=== PATIENT | female | born 1965 | race Caucasian/White ===

== ENCOUNTER → 2018-07-21 11:04 | Outpatient (CLI) | payer SELFPAY ==
[2018-07-21 12:53] LABS: Anion Gap 10 (5-15); BUN 11 mg/dL (7-18); BUN/Creat Ratio 14.8 RATIO (10-20); Calcium,Total 8.7 mg/dL (8.5-10.1); Chloride 105 mmol/L (98-107); Cholesterol 215 mg/dL (200); Creatinine, Serum 0.74 mg/dL (0.55-1.02); EST Glomerular Filtration Rate 86 mL/min (>60); Est Glom Filt Rate - Afr Amer 104 mL/min (>60); Glucose 113 mg/dL (74-106); High Density Lipoprotein 73 mg/dL; Potassium 3.9 mmol/L (3.5-5.1); Sodium Level 137 mmol/L (136-145); Triglycerides 78 mg/dL; Very Low Density Lipoprotein 16 mg/dL (5-40)
== END ==
PROVIDERS: Visit Provider Family Medicine
DX: I10 Essential (primary) hypertension (principal)
CPT/HCPCS: 36415; 80048; 80061

== ENCOUNTER 2022-08-08 12:38 | Emergency (ER) | payer SELFPAY ==
[2022-08-08 12:40] VITALS: BP 158/108; PULSE 75; RESP 16; TEMP 36; O2SAT 97
--- NOTE | 2022-08-08 12:59 | CT_ITS ---
STUDY: CT ABDOMEN AND PELVIS WITH CONTRAST REASON FOR EXAM: Female, 57 years old. Right lower quadrant pain. Prior hernia repair. RADIATION DOSAGE (If Supplied By Facility): CTDIvol = ( 17.37 ) mGy, DLP = ( 534.86 ) mGycm TECHNIQUE: Transaxial images were obtained from the dome of the diaphragm to the symphysis pubis without oral contrast. IV 100mL Isovue-300 was administered. Sagittal and coronal images were reconstructed. Individualized dose optimization techniques were used for this CT. COMPARISON: None. FINDINGS: The visualized lung bases are unremarkable. The visualized portions of the heart are within normal limits. There is a 1.5 cm x 1 some mucous cyst in the superior medial aspect of the right lobe of the liver. A cyst is also seen in the anterior lateral portion of the midportion of the right lobe measuring 1.1 cm x 1 cm. Tiny cysts are also seen in the left lobe and inferior aspect of the right lobe of the liver. The patient is status post cholecystectomy. Normal spleen. Normal pancreas. Normal bilateral adrenal glands. Mild degree of bilateral hydronephrosis. Normal visualized stomach. Normal small intestine. There is diverticulosis, with thickening of the colon wall, and pericolonic inflammation changes consistent with acute diverticulitis. The appendix is visualized and appears normal. There is scattered atherosclerotic calcification of the abdominal aorta, without a demonstrated aneurysm. Normal inferior vena cava. Normal retroperitoneum. Normal urinary bladder. There is absence of the uterus consistent with a prior hysterectomy. Prominent venous channels seen in the pelvis. Prominence of the left gonadal vein. Pelvic congestion syndrome should be There is a small umbilical hernia containing fat. Normal osseous structures. CT/Abdomen/Pelvis W IV Cont ONLY IMPRESSION: Small hepatic cysts. Dilatation of the left gonadal vein with the increase venous structures in the pelvis. Pelvic congestion syndrome should BE ruled out. Sigmoid diverticulosis with thickening of the wall of the sigmoid colon with mild increased markings in the surrounding peritoneal fat. Early acute diverticulitis should be ruled out. Electronically Signed: Abdullahi Hou MD at 13:38 EDT ,
--- NOTE | 2022-08-08 13:00 | EDS_ITS ---
HPI History of Present Illness Chief Complaint: Abd Pain Informant: patient Narrative Narrative: 57-year-old male presenting to the emergency department with a chief complaint of abdominal pain. Patient states that since 2010 she has had problems with hernias in her abdomen. She states that she has no current primary care doctor and she has not made appointment with her surgeon since 2010. She states that she has been taking a lot of ibuprofen especially over the past several months and this is caused her blood pressure to be elevated so she made an online appointment and they represcribed her propranolol which she had been on in the past for migraine prevention. She states that it has not done anything for her headaches. She has not called for new primary care doctor. She states that her hernias are hurting really bad now. No fevers vomiting or diarrhea. [facility] Medical History (Updated 08/08/22 @ 13:[address] Sharif Lugo DO) Hypertension Allergy/AdvReac Type Severity Reaction Status Date / Time codeine AdvReac Upset Verified 08/08/22 12:39 Stomach Surgical History (Updated 08/08/22 @ 13:[address] Sharif Lugo DO) H/O umbilical hernia repair History of hysterectomy Social History (Updated 08/08/22 @ 13:[address] Sharif Lugo DO) Smoking Status: Current every day smoker substance use type: does not use ROS ROS ED Constitutional Constitutional ED: Denies chills or weight loss Eyes Eyes: Denies change in vision or diplopia ENT ENT ED: Denies ear pain, rhinorrhea or sore throat Cardiovascular Cardiovascular: Denies chest pain, orthopnea, palpitations or racing heartbeat Respiratory/Chest Respiratory/Chest: Denies cough, dyspnea or orthopnea Gastrointestinal Gastrointestinal: Reports abdominal pain; Denies constipation, diarrhea, nausea or vomiting Genitourinary Genitourinary ED: Denies dysuria, hematuria or urinary frequency Musculoskeletal Musculoskeletal: Denies arthralgias or myalgias Integumentary Denies abscess or rash Neurologic Neurologic: Denies headache(s) or weakness Psychiatric Psychiatric: Denies anxiety, depression, suicidal ideation or suicidal thoughts Endocrine Endocrinology: Denies polydipsia, polyphagia or polyuria Allergic/Immunologic Allergic/Immunologic ED: Denies mouth swelling, tongue swelling or urticaria EXAM Physical Exam Const Vital Signs: 08/08/22 12:40 Temperature 96.8 F L Temperature Source Temporal Pulse Rate 75 Respiratory Rate 16 Blood Pressure 158/108 H Blood Pressure Mean 124 Pulse Ox 97 Oxygen Delivery Method Room Air Positive well nourished and well developed General Appearance ED: well developed HEENT Reports normocephalic, head/scalp atraumatic and moist mucous membranes Eyes PERRL and EOMs intact bilaterally Neck no lymphadenopathy, supple and no JVD Resp normal respiratory effort and clear to auscultation bilaterally Cardio regular rate, regular rhythm and no murmurs GI GI Narrative: The patient complains of generalized tenderness to palpation throughout the abdomen. However it is soft. I do not appreciate any obvious hernias at this time. Palpation: soft and tender; Negative for guarding or rebound tenderness present Back/Spine no CVA tenderness and normal ROM Extremity normal to inspection General Extremety ED: Negative for edema General Extremity: Negative for edema Neuro oriented x3 and CN's II-XII intact bilaterally Sensorium / Orientation: alert Motor Exam: strength 5/5 throughout Psych mental status grossly normal Mood & Affect: Negative for depressed or tearful Skin no rashes or lesions noted and no wounds Discharge Plan Triage Chief Complaint: Abd Pain ED Provider: Sharif Lugo
[2022-08-08 13:20] LABS: Absolute Lymphocyte Count 2.31 X10^3/uL (0.83-4.51); Absolute Neutrophil Count 5.1 X10^3/uL (2.0-7.7); Basophil# 0.01 X10^3/uL; Basophil% 0.1 % (0-1); Hematocrit 46.9 % (37-47); Hemoglobin 16.1 g/dL (12.0-15.0); Lymphocyte # 2.31 X10^3/ul (0.83-4.51); Lymphocyte % 28.9 % (19-41); Mean Corp Hgb Conc 34.3 g/dL (32-36); Mean Corpuscular Hgb 30.6 pg (27.0-32.0); Mean Corpuscular Volume 89.2 fL (81-99); Mean Platelet Vol. 9.5 fl (6.2-12.0); Monocyte# 0.54 X10^3/uL; Monocyte% 6.8 % (0-10); NRBC Flagged by Analyzer 0 % (0-5); Neutrophil # 5.11 X10^3/uL (2.7-7.7); Neutrophil % 63.8 % (47-70); Platelet Count 196 K/mm3 (150-450); RBC Distribution Width CV 12.2 % (11.6-14.6); RBC Distribution Width SD 40.3 fl (35.1-43.9); Red Blood Count 5.26 M/mm3 (4.2-5.4)
[2022-08-08 13:33] LABS: ALB/GLOB Ratio 1.1 RATIO (0.9-2.4); AST(SGOT) 29 U/L (15-37); Alanine Aminotransfer ALT/SGPT 35 U/L (13-56); Albumin, Serum 3.9 g/dL (3.2-5.0); Alkaline Phosphatase 90 U/L (45-117); Anion Gap 6 (5-15); BUN 16 mg/dL (7-18); BUN/Creat Ratio 21.2 RATIO (10-20); Calcium,Total 9.5 mg/dL (8.5-10.1); Chloride 106 mmol/L (98-107); Creatinine, Serum 0.75 mg/dL (0.55-1.02); EST Glomerular Filtration Rate 84 mL/min (>60); Est Glom Filt Rate - Afr Amer 101 mL/min (>60); Globulin 3.7 g/dL (2.2-4.2); Glucose 111 mg/dL (74-106); Lipase 131 U/L (73-393); Potassium 4.1 mmol/L (3.5-5.1); Protein, Total 7.6 g/dL (6.4-8.2); Sodium Level 140 mmol/L (136-145)
== END 2022-08-08 13:57 | disposition home or self-care (01) ==
PROVIDERS: Emergency Provider Emergency Medicine; Visit Provider Emergency Medicine
DX: K57.32 Diverticulitis of large intestine without perforation or abscess without bleeding (principal); I10 Essential (primary) hypertension; R51.9 Headache, unspecified; F17.200 Nicotine dependence, unspecified, uncomplicated; Z79.1 Long term (current) use of non-steroidal anti-inflammatories (NSAID)
CPT/HCPCS: 74177; 80053; 83690; 85025; 99283; Q9967; A4216

== ENCOUNTER 2022-08-26 11:59 | Emergency (ER) | payer SELFPAY ==
[2022-08-26 12:01] VITALS: BP 154/89; PULSE 90; RESP 18; TEMP 36.6; O2SAT 99; BMI 25.7
--- NOTE | 2022-08-26 12:13 | EDS_ITS ---
HPI <JUAN A Lara - Last Filed: 08/26/22 14:26> History of Present Illness Chief Complaint: Abd Pain Narrative Narrative: 57-year-old female presents with abdominal pain. The pain first started around August 08 and she was seen here and diagnosed with diverticulitis and completed 10 days of Augmentin. The bloating and pain had decreased but when she finished antibiotics over a week ago it came back. She has pain mainly in the right upper quadrant and left lower quadrants. After she eats she feels bloated but has no nausea or vomiting. She is having about 8 bowel movements per day which can be small formed stool or watery. Denies melena or hematochezia. Surgical history includes cholecystectomy, appendectomy, partial colon resection, umbilical hernia repair, hysterectomy. PFSH <JUAN A Lara - Last Filed: 08/26/22 14:26> PFSH Medical History GERD (gastroesophageal reflux disease) Hypertension Smoker Home Medications amlodipine 5 mg tablet 5 mg PO DAILY #30 tabs 08/08/22 [Rx Last Taken Unknown] amoxicillin 875 mg-potassium clavulanate 125 mg tablet 875 mg PO Q12H #20 TABLETS 08/08/22 [Rx Last Taken Unknown] hydrocodone-acetaminophen 5-325mg 5mg-325mg 1 tab PO Q6H PRN PRN Pain 3 days #12 TABLETS 08/08/22 [Rx Last Taken Unknown] amlodipine 5 mg tablet 7.5 mg PO DAILY 14 days #21 tabs 08/26/22 [Rx Last Taken Unknown] Allergy/AdvReac Type Severity Reaction Status Date / Time codeine AdvReac Upset Verified 08/26/22 12:00 Stomach Surgical History (Updated 08/26/22 @ 12:32 by Jose Grant) H/O umbilical hernia repair History of appendectomy History of bowel resection History of cholecystectomy History of hysterectomy Social History (Updated 08/08/22 @ 13:[address] Sharif Lugo, ) Smoking Status: Current every day smoker tobacco type: cigarettes substance use type: does not use ROS <JUAN A Lara - Last Filed: 08/26/22 14:26> ROS ED ROS Narrative Constitutional: Negative for fever, chills, malaise. Eyes: Negative for visual change. ENT: Negative for sore throat, ear pain, rhinorrhea. CVS: Negative for palpitations, chest pain, syncope. Respiratory: Negative for shortness of breath, cough, orthopnea. GI: Positive for abdominal pain. Negative for nausea, vomiting, melena, hematochezia. : Negative for dysuria, hematuria or frequency. Neuro: Negative for headache, motor/sensory dysfunction. Skin: Negative for rash, abscess, or wound. Musc: Negative for joint pain, swelling, trauma. Heme: Negative for easy bruising, bleeding, lymphadenopathy. EXAM <JUAN A Lara - Last Filed: 08/26/22 14:26> Physical Exam Narrative Exam Narrative: CONST: Patient sitting in no acute distress. EYES: Normal inspection. NECK: Normal inspection. RESP: No respiratory distress, CTAB. CVS: Regular rate and rhythm, no murmur, no gallop. ABD: Soft and nontender, no guarding or rebound, nondistended, no hepa tosplenomegaly. SKIN: Color normal, no rash, warm, dry, intact. EXTREMITIES: Normal appearance, no pedal edema. NEURO: Oriented x4. PSYCH: Normal affect. Const Vital Signs: 08/26/22 12:01 08/26/22 14:31 Temperature 97.8 F Temperature Source Temporal Pulse Rate 90 84 Respiratory Rate 18 17 Blood Pressure 154/89 H Blood Pressure Mean 110 Pulse Ox 99 97 Oxygen Delivery Method Room Air <Dr. Michael Zamora MD - Last Filed: 08/26/22 15:45> Physical Exam Const Vital Signs: 08/26/22 12:01 08/26/22 14:31 Temperature 97.8 F Temperature Source Temporal Pulse Rate 90 84 Respiratory Rate 18 17 Blood Pressure 154/89 H Blood Pressure Mean 110 Pulse Ox 99 97 Oxygen Delivery Method Room Air MDM <JUAN A Lara - Last Filed: 08/26/22 14:26> [facility] Narrative Medical decision making narrative: Patient finished 10 days of Augmentin for diverticulitis. She has had about another 10 days of abdominal bloating and pain in multiple different areas. She appears well nontoxic. Today her abdomen is soft and nontender. Blood work including CBC, CMP, lipase all unremarkable. CT shows unchanged sigmoid wall thickening from diverticulitis versus colitis. No abscess or perforation. Patient's description of pain is not necessarily even localized to this area. I do not feel more antibiotics are indicated at this time. I recommended a clear liquid diet and provided GI referral. She was also given a refill of her amlodipine and has a first PCP appointment on 09/10 for further management of BP. She was discharged in stable condition. Lab Data Attestation: I reviewed the patient's lab results. Labs: Laboratory Results - last 24 hr 08/26/22 08/26/22 12:27 12:27 WBC 5.5 RBC 4.94 Hgb 15.2 H Hct 45.2 MCV 91.5 MCH 30.8 MCHC 33.6 RDW Std Deviation 41.4 RDW Coeff of Lauren 12.3 Plt Count 170 MPV 9.2 Immature Gran % (Auto) 0.400 Neut % (Auto) 50.2 Lymph % (Auto) 40.8 Shackelford % (Auto) 8.6 Eos % (Auto) 0.0 Baso % (Auto) 0.0 Absolute Neuts (auto) 2.7 Absolute Lymphs (auto) 2.23 Nucleated RBC % 0 Sodium 139 Potassium 4.1 Chloride 108 H Carbon Dioxide 25.0 Anion Gap 6 BUN 15 Creatinine 0.76 Estim Creat Clear Calc 69.67 Est GFR (MDRD) Af Amer 100 Est GFR (MDRD) Non-Af 83 BUN/Creatinine Ratio 19.7 Glucose 102 Calcium 8.8 Total Bilirubin 0.90 AST 21 ALT 49 Alkaline Phosphatase 89 Total Protein 7.1 Albumin 3.5 Globulin 3.6 Albumin/Globulin Ratio 1.0 Lipase 149 Radiography Diagnostic Testing: Clinical Impression(s) from Imaging Studies Abdomen/Pelvis CT 08/26/22 13:04 IMPRESSION: Colonic diverticulosis with unchanged sigmoid wall thickening from sigmoid diverticulitis or colitis. No abscess. Electronically Signed: Vilma Davidson MD at 13:57 EDT , <Dr. Michael Zamora MD - Last Filed: 08/26/22 15:45> [facility] Lab Data Labs: Laboratory Results - last 24 hr 08/26/22 08/26/22 12:27 12:27 WBC 5.5 RBC 4.94 Hgb 15.2 H Hct 45.2 MCV 91.5 MCH 30.8 MCHC 33.6 RDW Std Deviation 41.4 RDW Coeff of Lauren 12.3 Plt Count 170 MPV 9.2 Immature Gran % (Auto) 0.400 Neut % (Auto) 50.2 Lymph % (Auto) 40.8 Shackelford % (Auto) 8.6 Eos % (Auto) 0.0 Baso % (Auto) 0.0 Absolute Neuts (auto) 2.7 Absolute Lymphs (auto) 2.23 Nucleated RBC % 0 Sodium 139 Potassium 4.1 Chloride 108 H Carbon Dioxide 25.0 Anion Gap 6 BUN 15 Creatinine 0.76 Estim Creat Clear Calc 69.67 Est GFR (MDRD) Af Amer 100 Est GFR (MDRD) Non-Af 83 BUN/Creatinine Ratio 19.7 Glucose 102 Calcium 8.8 Total Bilirubin 0.90 AST 21 ALT 49 Alkaline Phosphatase 89 Total Protein 7.1 Albumin 3.5 Globulin 3.6 Albumin/Globulin Ratio 1.0 Lipase 149 Radiography Diagnostic Testing: Clinical Impression(s) from Imaging Studies Abdomen/Pelvis CT 08/26/22 13:04 IMPRESSION: Colonic diverticulosis with unchanged sigmoid wall thickening from sigmoid diverticulitis or colitis. No abscess. Electronically Signed: Vilma Davidson MD at 13:57 EDT , Treatment and Re-Evaluation Narrative: I have personally performed a face to face assessment of the patient and have reviewed the DAMIAN Note. I performed a substantive portion of the visit including all aspects of the following. My wright findings include: History: Patient was seen about 2 and half weeks ago for abdominal pain. When I talked to her it seemed like she had pain that was in different areas not just at the left lower quadrant. She was seen and evaluated. CT showed diverticulitis very mild. She was treated with antibiotics. She felt as though it was getting better. She did finish the antibiotics. She is not sure exactly when they finished but the bottle was for 10 days. She states after finishing them the symptoms seem to be coming back. But her symptoms are not just in the left lower quadrant. She does have some pain there but she has pain that moves to other different areas 2. She is able to eat and drink. She sometimes has hard stools and sometimes has liquid stools. No malodorous stools. No fever. Exam: Patient is awake alert nontoxic. Lungs are clear. No pain with a deep breath. Heart regular. Abdomen is soft nondistended has normal bowel sounds. Her exam is quite variable. She occasionally has tenderness in the left lower quadrant but not consistently. I feel no hernia. I see no rash. Medical Decison Making: Patient will have repeat scan done. She was not sure if she finished the meds 10 days ago or couple days ago. I am not sure how she took these. It does not sound like she was on much of a clear liquid diet. I will repeat scan to make sure there is no new illness or development of an abscess or perforation since prior imaging. Discharge Plan Triage Chief Complaint: Abd Pain ED Midlevel Provider: Cindi Tovar ED Provider: Michael Zamora Dx/Rx/DC Orders Clinical Impression: Abdominal pain, Colitis Instructions: Abdominal Pain, ED Understanding Colitis Prescriptions: New amlodipine 5 mg tablet 7.5 mg PO DAILY 14 Days Qty: 21 0RF No Action hydrocodone-acetaminophen [hydrocodone-acetaminophen] 5-325 mg tablet 1 tab PO Q6H PRN PRN (Reason: Pain) 3 Days Qty: 12 0RF amoxicillin-pot clavulanate [amoxicillin-pot clavulanate] 875-125 mg tablet 875 mg PO Q12H Qty: 20 0RF amlodipine 5 mg tablet 5 mg PO DAILY Qty: 30 1RF Primary Care Provider: Gertrudis Barnard Referrals: FriendFranc, DO [Med Staff - Active Staff] - Care Physician,No Primary [Non-Staff] - Activity Restrictions/Additional Instructions: The CT scan shows a small area of your colon still looks thickened or irritated. I do not think more antibiotics at this point will be helpful. I recommend a clear liquid diet and calling the GI doctor for follow-up. Disposition Disposition: Home, Self Care
[2022-08-26 12:37] LABS: Absolute Lymphocyte Count 2.23 X10^3/uL (0.83-4.51); Absolute Neutrophil Count 2.7 X10^3/uL (2.0-7.7); Hematocrit 45.2 % (37-47); Hemoglobin 15.2 g/dL (12.0-15.0); Lymphocyte # 2.23 X10^3/ul (0.83-4.51); Lymphocyte % 40.8 % (19-41); Mean Corp Hgb Conc 33.6 g/dL (32-36); Mean Corpuscular Hgb 30.8 pg (27.0-32.0); Mean Corpuscular Volume 91.5 fL (81-99); Mean Platelet Vol. 9.2 fl (6.2-12.0); Monocyte# 0.47 X10^3/uL; Monocyte% 8.6 % (0-10); NRBC Flagged by Analyzer 0 % (0-5); Neutrophil # 2.74 X10^3/uL (2.7-7.7); Neutrophil % 50.2 % (47-70); Platelet Count 170 K/mm3 (150-450); RBC Distribution Width CV 12.3 % (11.6-14.6); RBC Distribution Width SD 41.4 fl (35.1-43.9); Red Blood Count 4.94 M/mm3 (4.2-5.4); White Blood Count 5.5 K/mm3 (4.4-11.0)
[2022-08-26 12:48] LABS: AST(SGOT) 21 U/L (15-37); Alanine Aminotransfer ALT/SGPT 49 U/L (13-56); Albumin, Serum 3.5 g/dL (3.2-5.0); Alkaline Phosphatase 89 U/L (45-117); Anion Gap 6 (5-15); BUN 15 mg/dL (7-18); BUN/Creat Ratio 19.7 RATIO (10-20); Calcium,Total 8.8 mg/dL (8.5-10.1); Chloride 108 mmol/L (98-107); Creatinine, Serum 0.76 mg/dL (0.55-1.02); EST Glomerular Filtration Rate 83 mL/min (>60); Est Glom Filt Rate - Afr Amer 100 mL/min (>60); Estimated Creatinine Clearance 69.67 ml/min; Globulin 3.6 g/dL (2.2-4.2); Glucose 102 mg/dL (74-106); Lipase 149 U/L (73-393); Potassium 4.1 mmol/L (3.5-5.1); Protein, Total 7.1 g/dL (6.4-8.2); Sodium Level 139 mmol/L (136-145)
--- NOTE | 2022-08-26 13:04 | CT_ITS ---
HISTORY: pain after treatment for diverticulitis. TECHNIQUE: Helically acquired images were obtained of the abdomen and pelvis after the intravenous administration of 100mL Isovue-370. A radiation dose optimization technique was used for this scan. 396 images. COMPARISON: 07/31/2022. FINDINGS: LOWER CHEST: Calcified left lower lobe granulomas. BOWEL: Bowel nondilated. Appendectomy. Colonic diverticulosis. Unchanged sigmoid wall thickening. PERITONEUM: No pericolonic fluid collection or significant ascites. LIVER: Small cysts again seen. GALLBLADDER/BILIARY TREE: Cholecystectomy with mild biliary ductal dilatation unchanged. SPLEEN/PANCREAS: Homogeneous and nonenlarged. KIDNEYS/ADRENAL GLANDS: No nodules. VESSELS: No abdominal aortic aneurysm. Mild atherosclerosis. PELVIC ORGANS: Absent uterus. Prominent left gonadal vessel again seen. BONES: Mild degenerative change. CT/Abdomen/Pelvis W IV Cont ONLY IMPRESSION: Colonic diverticulosis with unchanged sigmoid wall thickening from sigmoid diverticulitis or colitis. No abscess. Electronically Signed: Vilma Davidson MD at 13:57 EDT ,
[2022-08-26 14:31] VITALS: PULSE 84; RESP 17; O2SAT 97
== END 2022-08-26 14:33 | disposition home or self-care (01) ==
PROVIDERS: Physician Assistant; Emergency Provider Emergency Medicine; PCP Internal Medicine; Visit Provider Emergency Medicine
DX: K52.9 Noninfective gastroenteritis and colitis, unspecified (principal); I10 Essential (primary) hypertension; R14.0 Abdominal distension (gaseous); F17.210 Nicotine dependence, cigarettes, uncomplicated; K57.30 Diverticulosis of large intestine without perforation or abscess without bleeding
CPT/HCPCS: 74177; 80053; 83690; 85025; 99283; Q9967; A4216

== ENCOUNTER 2023-01-22 08:29 | Day surgery (SDC) | payer SELFPAY ==
[2023-01-22] VITALS (7 sets, daily range): BP systolic 105–139; BP diastolic 66–84; PULSE 74–88; RESP 16–19; TEMP 36.1–37; O2SAT 96–100; BMI 28.3
[2023-01-22] MEDS: Lactated Ringers 1,000 ML 15 ML IV (09:00)
--- NOTE | 2023-01-22 09:24 | HP.PCM_ITS ---
History and Physical Date of Admission: 01/22/23 Intake Vital Signs ? 01/01/2315:11 Height 5 ft 4 in Weight: 171 lb 6 oz BMI 29.4 BP 135/84 H Blood Pressure Location Rt brachial Position Sitting Respiration 17 Pulse 86 Pulse Source Monitor Temp 97.6 F L Temp Source Temporal Pulse Oximetry (%) 98 Oxygen Delivery Method room air Intake Visit Reasons:?UPPER & LOWER - CHRONIC REFLUX Chief Complaint: upper and lower- chronic reflux Is patient in pain?: Yes Allergies codeine Adverse Reaction (Verified 01/01/23 15:12) Upset Stomachsulfur Allergy (Severe, Uncoded 01/01/23 15:12) Vomiting Medications amlodipine 5 mg tablet 7.5 mg PO DAILY 14 days #45 tabs 09/10/22 [Rx Confirmed 01/01/23] esomeprazole magnesium 20 mg capsule,delayed release (Nexium) 20 mg PO DAILY 09/10/22 [History Confirmed 01/01/23] metronidazole 250 mg tablet 250 mg PO Q8H #30 tabs 09/10/22 [Rx Confirmed 01/01/23] stool softner PO 09/10/22 [History Confirmed 01/01/23] Lactobacillus acidophilus 1.5 mg (250 million cell) capsule (Probiotic Acidophilus) 100 mmu cells PO DAILY 01/01/23 [History Confirmed 01/01/23] PFSH Medical History Diverticulitis GERD (gastroesophageal reflux disease) High cholesterol Hypertension Lupus Migraine Sinus infection Smoker Surgical History?(Updated 09/10/22 @ 10:31 by Efrem Lewis) H/O umbilical hernia repair History of appendectomy History of bowel resection History of cholecystectomy History of hysterectomy History of LAVH Family History? Mother Alcoholism HypertensionGrandfather AlcoholismGrandmother Myocardial infarction Heart diseaseFather Kidney disease Social History? adopted:? No household members:? children housing:? apartment current occupational status:? 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 music, fishing and other history of recent travel:? No sexually active:? No Smoking Status:? Current every day smoker tobacco type: cigarettes alcohol intake:? never substance use type:? does not use diet:? low carbohydrate well-balanced diet:? daily or most days caffeine:? Yes eating out:? rarely or never during the past year weight has:? decreased > 10 lbs what type of physical activity do you participate in:? other details: physical job ki/pentecostal:? Voodoo seatbelt use:? always do you feel safe at home:? Yes HPI HPI HPI: Patient is a 57-year-old female with abdominal pain.? She says the abdominal pain is throughout her abdomen is constant.? She also feels like it is affecting her back.? She says she constantly feels bloated.? She is on Nexium and is taking it every day.? She says her colonoscopy was over 10 years ago and she has never had an EGD.? She says she feels very bloated and that she says she is having several bowel movements a day but does take a stool softener.? She was recently in the emergency room in August for thickening of the sigmoid colon, was treated for diverticulitis. ROS General General: Yes fatigue; No weight change, appetite, colon cancer, breast cancer or weakness HEENT HEENT: No difficulty swallowing, eye injury, eye surgery, swollen glands or hoarseness Endo Endocrine: No thyroid disease, diabetes mellitus, thyroid cancer, Hair loss, heat intolerance or cold intolerance Musc Musculoskeletal: No back problems, arthritis, rheumatoid arthritis, gout or joint pain Cardio Cardiovascular: Yes high blood pressure; No murmur, pacemaker, heart disease, atrial fibrillation, heart attack, heart stent, palpitations, shortness of breat with exertion or chest pain Psych Psychiatric: No depression, anxiety or hearing voices Resp Respiratory: No shortness of breath, No sleep apnea, No cough, No COPD, Yes asthma, No emphysema and No wheezing Gastro Gastrointestinal: Yes abdominal pain, No nausea or vomiting, Yes diarrhea, Yes constipation, No blood in stool, Yes acid reflux, Yes hemorrhoids, Yes ulcers, No gallbladder problem and No black,tarry stools Alpesh Hematologic: No blood thinners, No blood disorders, No bleeding, No anemia and No blood clots Neuro Neurologic: No system reviewed and no additional complaints, except as documented, No as per HPI, No abnormal gait, No abnormal hearing, No abnormal movements, No abnormal speech, No behavioral changes, No burning sensations, No confusion, No convulsions, No disequilibrium, No dizziness, No localized weakness, No frequent falls, No headache(s), No lack of coordination, No loss of vision, No memory loss, Yes numbness, No other visual disturbances, No radicular pain, No restless legs, No sensory deficit, No syncope, No tingling, No tremor(s), No weakness and No other Exam Const General: cooperative Orientation: alert and oriented x3 [facility] Head: normal to inspection Neck Neck: normal visual inspection and full ROM Chest Chest palpation & inspection: normal inspection of the chest Resp Effort & Inspection: normal respiratory effort Auscultation: clear to auscultation bilaterally Cardio Rate: regular rate Rhythm: regular rhythm GI Inspection: non-distended Palpation: soft and tender Skin General: no rashes or lesions noted Neuro General: patient alert and patient oriented x3 Extrem General: full ROM Psych Appearance: grossly normal Mental Status: mental status grossly normal Assessment and Plan Assessment and Plan (1) History of diverticulitis: ?Status:?Acute (2) Abdominal pain: ?Status:?Acute ?Qualifiers: ?Abdominal location:?generalized? Qualified Code(s):?R10.84 - Generalized abdominal pain (3) GERD (gastroesophageal reflux disease): ?Status:?Acute ?Qualifiers: ?Esophagitis presence:?esophagitis presence not specified? Qualified Code(s):?K21.9 - Gastro-esophageal reflux disease without esophagitis ? ? ? Orders: Orders Colonoscopy Today ? ? EGD Today ? ? Plan The patient is having diffuse abdominal pain and she is already on a PPI.? She is also having bloating.? I recommended taking MiraLAX to see if that helped at all and I will perform an upper and lower endoscopy.? Patient is already on a PPI. I explained endoscopy in detail to the patient.? I explained the risks including but not limited to stroke or heart attack with anesthesia, perforation of the GI tract, bleeding, infection.? I explained that any of these could necessitate further emergency surgery.? The patient understands and all questions were answered sufficiently.? The patient wishes to proceed with procedure. Reji Blanco MD Pager: [facility] [address] [place] [address], [address] [place] [address] Office: I have examined the patient and the H&P has been reviewed. There are no clinical changes since date of exam.
--- NOTE | 2023-01-22 09:30 | IMM_PTH ---
PATIENT: LAURA RENTERIA LOC: EN U#:[id number] AGE/SX: 57/F ROOM: RE01/22/[address]: Dr. Reji Blanco MD : 1965 BED: DIS: 01/22/2023 SPEC #: [id number] RECD: 01/23/23 09:05 STATUS: KAYLYN AMADO #: [id number] GUY: 01/22/23 09:[address]: Reji Blanco DEPT: IMMUNOHISTOCHEMISTRY RECD BY: Yarely Kaur ENTERED: 01/23/23 09:06 SP TYPE: IMMUNO OTHR DR: Dr. Gertrudis Barnard MD Tissues: A - Stomach, NOS Procedures: H Pylori (initial) PHYSICIAN & INSTITUTION [place] [id number] SPECIMEN INFORMATION: Tissue Source: A ? Antrum biopsy Clinical Info: Diverticulitis, abdominal pain, GERD Specimen Number: [id number] CPT code: 77196 METHODOLOGY: Deparaffinized sections of prefer/formalin-fixed tissue or PAP/DQ stained slides are incubated with monoclonal/polyclonal antibodies/oligonucleotide probes. Localization is made via biotin free immunoperoxidase method. Appropriate controls are performed and reacted as expected. Results on target cell population are indicated in the following table: RESULTS: ANTIBODY / CLONE RESULT Block A H Pylori (polyclonal) negative These tests were developed and their performance characteristics determined by [facility]. They may not have been cleared or approved by the U.S. Food and Drug Administration. The FDA has determined that such clearance or approval is not necessary. The above immunohistochemical/dualISH markers are ordered and reviewed by the Pathologist. INTERPRETATION: A. Antrum, biopsy: Negative for Helicobacter pylori organisms. SJ:bishnu 01/24/2023
--- NOTE | 2023-01-22 09:30 | COLBX_PTH ---
PATIENT: LAURA RENTERIA LOC: EN U#:[id number] AGE/SX: 57/F ROOM: RE01/22/[address]: Dr. Reji Blanco MD : 1965 BED: DIS: 01/22/2023 SPEC #: [id number] RECD: 01/23/23 06:44 STATUS: KAYLYN AMADO #: [id number] GUY: 01/22/23 09:[address]: Reji Blanco DEPT: SURGICAL PATHOLOGY RECD BY: Jeaneth Ramirez ENTERED: 01/23/23 08:08 SP TYPE: COLON BX OTHR DR: Dr. Gertrudis Barnard MD Tissues: A - Gastric mucous membrane B - Gastric mucous membrane Procedures: Special Stain Group II Surgery Specimen Level IV Alcian Blue/PAS (control) HEADER OPERATION: Colonoscopy, EGD biopsy ([facility] [place] PRE-OP DIAGNOSIS: History of diverticulitis, abdominal pain, GERD TISSUE SUBMITTED: A ? Antrum biopsy, H. pylori and path, B - Gastroesophageal junction biopsy MICROSCOPIC DIAGNOSIS A. Antrum, biopsy: Mild gastritis. See microscopic description and comment. G. Gastroesophageal junction, biopsy: A fragment of gastroesophageal mucosa with chronic inflammation. Intestinal metaplasia (goblet cell metaplasia) not identified. See comment. SJ:rg 01/24/2023 COMMENT A. The results of immunohistochemistry for Helicobacter pylori will be reported separately ([id number]). B. Alcian blue/PAS stain with matched control is used in the evaluation of the specimen. MICROSCOPIC DESCRIPTION Slides are reviewed. A. The specimen shows fragments of gastric mucosa with chronic inflammatory cell infiltrates in the lamina propria consisting of lymphocytes and plasma cells, consistent with mild chronic gastritis. GROSS DESCRIPTION A - Received in fixative is one container labeled with the patient's name and designated antrum biopsy. The specimen consists of two irregular fragments of light rizzo soft tissue that in aggregate measure 0.6 x 0.3 x 0.1 cm. The specimen is totally submitted in one cassette. B - Received in fixative is one container labeled with the patient's name and designated GE junction biopsy. The specimen consists of one irregular fragment of light rizzo soft tissue that measures 0.3 x 0.3 x 0.1 cm. The specimen is totally submitted in one cassette. / LIN:bishnu 01/23/2023 TC:3 CPT: 15558 x2, 51270
--- NOTE | 2023-01-22 09:58 | OP.EGD_ITS ---
Patient Name: Juliann Luna Procedure Date: 01/22/2023 9:27 AM Date of : 1965 Age: 57 Procedure: Upper GI endoscopy Indications: Abdominal pain in the left upper quadrant Providers: Reji Blanco MD Referring MD: Gertrudis Barnard Medicines: Propofol per Anesthesia Patient Profile: This is a 57 year old female. Refer to note in patient chart for documentation of history and physical. Complications: No immediate complications. Estimated blood loss: Minimal. Procedure: Pre-Anesthesia Assessment: - Prior to the procedure, a History and Physical was performed, and patient medications and allergies were reviewed. The patient's tolerance of previous anesthesia was also reviewed. The risks and benefits of the procedure and the sedation options and risks were discussed with the patient. All questions were answered, and informed consent was obtained. Prior Anticoagulants: The patient has taken no previous anticoagulant or antiplatelet agents. After reviewing the risks and benefits, the patient was deemed in satisfactory condition to undergo the procedure. After obtaining informed consent, the endoscope was passed under direct vision. Throughout the procedure, the patient's blood pressure, pulse, and oxygen saturations were monitored continuously. The Endoscope was introduced through the mouth, and advanced to the second part of duodenum. The upper GI endoscopy was accomplished without difficulty. The patient tolerated the procedure well. Scope In: 9:36:20 AM Scope Out: 9:39:47 AM Total Procedure Duration Time 0 hours 3 minutes 27 seconds Findings: The esophagus was normal. The stomach was normal. The examined duodenum was normal. One tongue of salmon-colored mucosa was present. Biopsies were taken with a cold forceps for histology. Biopsies were taken with a cold forceps in the gastric antrum for Helicobacter pylori testing. Impression: - Normal esophagus. - Normal stomach. - Normal examined duodenum. 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 Biopsied. - Biopsies were taken with a cold forceps for Helicobacter pylori testing. Recommendation: - Discharge patient to home. - Resume previous diet. - Continue present medications. - Await pathology results. Procedure Code(s): --- Professional --- 90653, Esophagogastroduodenoscopy, flexible, transoral; with biopsy, single or multiple Diagnosis Code(s): --- Professional --- K22.8, Other specified diseases of esophagus R10.12, Left upper quadrant pain CPT copyright 2017 [employer]. All rights reserved. The codes documented in this report are preliminary and upon automotive parts clerk review may be revised to meet current compliance requirements. Reji Blanco MD 01/22/2023 9:57:31 AM This report has been signed electronically. Number of Addenda: 0 Note Initiated On: 01/22/2023 9:27 AM
--- NOTE | 2023-01-22 09:58 | OP.CCLET_ITS ---
01/22/2023 Gertrudis Barnard [facility] [address] [place] [address] Re : Upper GI endoscopy procedure for Juliann Luna Dear Dr. Barnard This procedure was performed on Sunday, January 22, 2023. My impressions and recommendations are as follows: Impressions : - Normal esophagus. - Normal stomach. - Normal examined duodenum. - [place]-colored mucosa suspicious for short-segment Aguila's esophagus. Biopsied. - Biopsies were taken with a cold forceps for Helicobacter pylori testing. Recommendations : - Discharge patient to home. - Resume previous diet. - Continue present medications. - Await pathology results. My findings are described in the full procedure note, which is enclosed. If I can be of further assistance, please feel free to contact me at Doctor phone number(s): , Work: . Sincerely, Reji Blanco MD 01/22/2023 9:57:31 AM This report has been signed electronically.
--- NOTE | 2023-01-22 10:03 | OP.COLON_ITS ---
Patient Name: Juliann Luna Procedure Date: 01/22/2023 9:42 AM Date of : 1965 Age: 57 Procedure: Colonoscopy Indications: Follow-up of diverticulitis Providers: Reji Blanco MD Referring MD: Gertrudis Barnard Medicines: Monitored Anesthesia Care Patient Profile: This is a 57 year old female. Refer to note in patient chart for documentation of history and physical. Last Colonoscopy: none. The patient's first colonoscopy is today. Complications: No immediate complications. Procedure: Pre-Anesthesia Assessment: - Prior to the procedure, a History and Physical was performed, and patient medications and allergies were reviewed. The patient's tolerance of previous anesthesia was also reviewed. The risks and benefits of the procedure and the sedation options and risks were discussed with the patient. All questions were answered, and informed consent was obtained. Prior Anticoagulants: The patient has taken no previous anticoagulant or antiplatelet agents. After reviewing the risks and benefits, the patient was deemed in satisfactory condition to undergo the procedure. - Prior to the procedure, a History and Physical was performed, and patient medications and allergies were reviewed. The patient's tolerance of previous anesthesia was also reviewed. The risks and benefits of the procedure and the sedation options and risks were discussed with the patient. All questions were answered, and informed consent was obtained. Prior Anticoagulants: The patient has taken no previous anticoagulant or antiplatelet agents. After reviewing the risks and benefits, the patient was deemed in satisfactory condition to undergo the procedure. After I obtained informed consent, the scope was passed under direct vision. Throughout the procedure, the patient's blood pressure, pulse, and oxygen saturations were monitored continuously. The pediatric colonoscope was introduced through the anus and advanced to the cecum, identified by appendiceal orifice and ileocecal valve. The colonoscopy was performed without difficulty. The patient tolerated the procedure well. The quality of the bowel preparation was good. Scope In: 9:43:36 AM Scope Withdrawal Time 0 hours 6 minutes 2 seconds Scope Out: 9:54:37 AM Total Procedure Duration Time 0 hours 11 minutes 1 second Findings: The entire examined colon appeared normal on direct and retroflexion views. Impression: - The entire examined colon is normal on direct and retroflexion views. - No specimens collected. Recommendation: - Discharge patient to home. - Resume previous diet. - Continue present medications. - Repeat colonoscopy in 10 years for screening purposes. Procedure Code(s): --- Professional --- 80189, Colonoscopy, flexible; diagnostic, including collection of specimen(s) by brushing or washing, when performed (separate procedure) Diagnosis Code(s): --- Professional --- K57.32, Diverticulitis of large intestine without perforation or abscess without bleeding CPT copyright 2017 [employer]. All rights reserved. The codes documented in this report are preliminary and upon certified coder review may be revised to meet current compliance requirements. Reji Blanco MD 01/22/2023 10:03:21 AM This report has been signed electronically. Number of Addenda: 0 Note Initiated On: 01/22/2023 9:42 AM
--- NOTE | 2023-01-22 10:04 | OP.CCLET_ITS ---
01/22/2023 Gertrudis Barnard [facility] [address] [place] [address] Re : Colonoscopy procedure for Juliann Luna Dear Dr. Barnard This procedure was performed on Sunday, January 22, 2023. My impressions and recommendations are as follows: Impressions : - The entire examined colon is normal on direct and retroflexion views. - No specimens collected. Recommendations : - Discharge patient to home. - Resume previous diet. - Continue present medications. - Repeat colonoscopy in 10 years for screening purposes. My findings are described in the full procedure note, which is enclosed. If I can be of further assistance, please feel free to contact me at Doctor phone number(s): , Work: . Sincerely, Reji Blanco MD 01/22/2023 10:03:21 AM This report has been signed electronically.
== END 2023-01-22 10:34 | disposition home or self-care (01) ==
LOC: EN 08:30 → AC 08:31
PROVIDERS: PCP Internal Medicine; Referring Provider Internal Medicine; Visit Provider Surgery
PROC: 0DJD8ZZ Inspection of Lower Intestinal Tract, Via Natural or Artificial Opening Endoscopic (ICD-10-PCS; CPT 45378; principal; 2023-01-22 09:25)
DX: K29.70 Gastritis, unspecified, without bleeding (principal); E78.00 Pure hypercholesterolemia, unspecified; I10 Essential (primary) hypertension; F17.210 Nicotine dependence, cigarettes, uncomplicated; K21.9 Gastro-esophageal reflux disease without esophagitis; K57.92 Diverticulitis of intestine, part unspecified, without perforation or abscess without bleeding; J45.909 Unspecified asthma, uncomplicated; Z87.19 Personal history of other diseases of the digestive system; Z79.899 Other long term (current) drug therapy
CPT/HCPCS: 45378; 43239; 88305; 88313; 88342; J7120; J2405

== ENCOUNTER 2023-12-10 08:57 | Emergency (ER) | payer SELFPAY ==
[2023-12-10 08:58] VITALS: BP 147/98; PULSE 89; RESP 14; TEMP 36.3; O2SAT 99; BMI 29.4
[2023-12-10 09:12] VITALS: BP 135/107; PULSE 88; RESP 18; O2SAT 98
[2023-12-10 09:25] VITALS: O2SAT 97
--- NOTE | 2023-12-10 09:25 | RAD_ITS ---
STUDY: X-RAY CHEST REASON FOR EXAM: Female, 58 years old. Chest pain TECHNIQUE: Single AP portable view of the chest. COMPARISON: None. FINDINGS: EKG electrodes are seen. Hyperinflation. Scattered bilateral calcified granulomas. There is no demonstrated pleural abnormality. Normal size heart. Normal mediastinum and rolando. Normal visualized pulmonary arteries. Normal visualized aortic arch and descending thoracic aorta. Normal visualized thoracic spine. Normal visualized ribs, clavicles, and shoulders. There is no demonstrated abnormality of the visualized soft tissue structures of the upper abdomen. RAD/Chest 1 View (Portable) IMPRESSION: Hyperinflation. No acute tiny amount is seen. Electronically Signed: Abdullahi Hou MD at 9:42 EST ,
[2023-12-10 09:34] LABS: Absolute Lymphocyte Count 2.03 X10^3/uL (0.83-4.51); Absolute Neutrophil Count 4.2 X10^3/uL (2.0-7.7); Basophil# 0.01 X10^3/uL; Basophil% 0.1 % (0-1); Hematocrit 44.5 % (37-47); Hemoglobin 14.8 g/dL (12.0-15.0); Lymphocyte # 2.03 X10^3/ul (0.83-4.51); Lymphocyte % 30.4 % (19-41); Mean Corp Hgb Conc 33.3 g/dL (32-36); Mean Corpuscular Hgb 30.3 pg (27.0-32.0); Mean Platelet Vol. 9.1 fl (6.2-12.0); Monocyte# 0.44 X10^3/uL; Monocyte% 6.6 % (0-10); NRBC Flagged by Analyzer 0 % (0-5); Neutrophil # 4.17 X10^3/uL (2.7-7.7); Neutrophil % 62.6 % (47-70); Platelet Count 217 K/mm3 (150-450); RBC Distribution Width CV 13.1 % (11.6-14.6); RBC Distribution Width SD 43.7 fl (35.1-43.9); Red Blood Count 4.89 M/mm3 (4.2-5.4); White Blood Count 6.7 K/mm3 (4.4-11.0)
[2023-12-10 09:50] LABS: Anion Gap 5 (5-15); BUN 11 mg/dL (7-18); BUN/Creat Ratio 15.2 RATIO (10-20); Calcium,Total 9.1 mg/dL (8.5-10.1); Chloride 111 mmol/L (98-107); Creatinine, Serum 0.72 mg/dL (0.55-1.02); EST Glomerular Filtration Rate 87 mL/min (>60); Est Glom Filt Rate - Afr Amer 106 mL/min (>60); Estimated Creatinine Clearance 84.87 ml/min; Glucose 126 mg/dL (74-106); Potassium 3.9 mmol/L (3.5-5.1); Sodium Level 139 mmol/L (136-145); Troponin-I HS 5 pg/mL (3.0-54.0)
[2023-12-10] MEDS: Aspirin 81 MG TAB.CHEW 324 MG PO (09:56)
--- NOTE | 2023-12-10 10:32 | EDS_ITS ---
HPI History of Present Illness Chief Complaint: Chest Pain Narrative Narrative: 58-year-old female presenting with chest pain and shortness of breath. Patient states she was laid off for several months and just darted working at [employer] recently. She is been there for several weeks. 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 She states that she has to work at a fast pace. She develops chest pain or shortness of breath when she gets to working. She states that it lasts all day. She states that she does not have to stop or take a break except for her 1 hour lunch break. She denies fever, chills, cough. Denies any history of cardiac disease. Patient does states he has hypertension and states her blood pressures have been in the 150s systolic at home. She is on amlodipine 7.5 mg daily. [facility] Medical History Alcohol use Asthma Back pain Cardiology follow-up encounter Diverticulitis Gastric reflux GERD (gastroesophageal reflux disease) History of stress test History of ulceration Hypertension Hypertension Lupus Marijuana use Migraine Post-menopausal Smoker Wears glasses Home Medications esomeprazole magnesium 20 mg capsule,delayed release (Nexium) 20 mg PO DAILY 09/10/22 [History Last Taken 01/22/23] Lactobacillus acidophilus 250 million cell capsule (Probiotic Acidophilus) 100 mmu cells PO DAILY 01/01/23 [History Last Taken Unknown] amlodipine 5 mg tablet 7.5 mg (1.5 x 5 mg) PO DAILY #135 tabs 01/16/23 [Rx Last Taken 01/22/23] albuterol sulfate 90 mcg/actuation aerosol inhaler (ProAir HFA) 1 inh inhalation Q6H PRN ASTHMA 01/17/23 [History Last Taken Unknown] Allergy/AdvReac Type Severity Reaction Status Date / Time Sulfa (Sulfonamide Allergy Vomiting Verified 12/10/23 08:58 Antibiotics) codeine AdvReac Upset Verified 12/10/23 08:58 Stomach Family History Mother Alcoholism Hypertension Grandfather Alcoholism Grandmother Myocardial infarction Heart disease Father Kidney disease Surgical History H/O umbilical hernia repair History of appendectomy History of bowel resection History of cardiac catheterization History of cholecystectomy History of esophagogastroduodenoscopy (EGD) History of hysterectomy History of LAVH Hx of sinus surgery Social History adopted: No household members: children housing: apartment current occupational status: employed current occupation: goggles assembler food prep worker leisure activities: music, fishing and other history of recent travel: No sexually active: No Smoking Status: Current every day smoker tobacco type: cigarettes alcohol intake: never substance use type: does not use diet: low carbohydrate well-balanced diet: daily or most days caffeine: Yes eating out: rarely or never during the past year weight has: decreased > 10 lbs what type of physical activity do you participate in: other details: physical job ki/adventist: Moravian seatbelt use: always do you feel safe at home: Yes ROS ROS ED Constitutional Constitutional ED: Denies chills, fever(s) or sweats Eyes Eyes: Denies blurry vision or change in vision ENT ENT ED: Denies ear pain or sore throat Cardiovascular Cardiovascular: Reports chest pain; Denies palpitations or racing heartbeat Respiratory/Chest Respiratory/Chest: Reports dyspnea; Denies cough or sputum Gastrointestinal Gastrointestinal: Denies abdominal pain, constipation, diarrhea, nausea or vomiting Genitourinary Genitourinary ED: Denies dysuria, hematuria or urinary frequency Musculoskeletal Musculoskeletal: Denies arthralgias, myalgias or neck pain Integumentary Denies abscess, Abrasions or rash Neurologic Neurologic: Denies headache(s), paresthesias or weakness Psychiatric Psychiatric: Denies anxiety, depression, suicidal ideation or suicidal thoughts Endocrine Endocrinology: Denies polydipsia or polyuria EXAM Physical Exam Const Vital Signs: 12/10/23 08:58 12/10/23 09:12 12/10/23 09:12 Temperature 97.3 F L Temperature Source Temporal Pulse Rate 89 88 Respiratory Rate 14 18 Respiratory Effort Normal Non-Labored Respiratory Pattern Normal Blood Pressure 147/98 H 135/107 H Blood Pressure Mean 114 116 Pulse Ox 99 98 Oxygen Delivery Method Room Air Room Air 12/10/23 09:25 12/10/23 11:43 Temperature Temperature Source Pulse Rate 73 Respiratory Rate 14 Respiratory Effort Respiratory Pattern Blood Pressure 112/60 Blood Pressure Mean 77 Pulse Ox 97 97 Oxygen Delivery Method Room Air Room Air Positive well nourished General Appearance ED: NAD; Negative for pallor HEENT Reports moist mucous membranes normocephalic and atraumatic Chest Wall inspection of chest normal Resp normal respiratory effort and clear to auscultation bilaterally Auscultation: Negative for rales, rhonchi or wheezes Cardio regular rate and regular rhythm GI normal to inspection, nondistended, normoactive bowel sounds Neuro oriented x3 and CN's II-XII intact bilaterally Sensorium / Orientation: awake and alert Motor Exam: strength 5/5 throughout Psych mental status grossly normal Skin no rashes or lesions noted General Skin Exam: Negative for jaundice or pallor Heart Score History: Slightly/Non-Suspicious ECG: Normal Age: >45 - <65 years Risk Factors: 1 or 2 Risk Factors Troponin: </= Normal Limit Score: 2 MDM MDM MDM Narrative Medical decision making narrative: Patient presenting chest pain with exertion. Been happening for weeks. She states she can go all day at work without stopping even in the presence of this chest pain and shortness of breath. Differential includes ACS, pneumonia, dehydration, anemia, electrolyte abnormalities. Considered PE however patient is PERC negative. CBC will be obtained to assess white blood cell count, hemoglobin, platelets. BMP to assess renal function, electrolytes, glucose. High-sensitivity troponin EKG to assess for ischemia/dysrhythmia. Chest x-ray to rule out pneumonia. EKG on my interpretation shows a normal sinus rhythm with a ventricular rate of 81 bpm without sign of ischemic change. Chest x-ray on my interpretation shows no acute process. The radiologist interprets this and agrees. CBC, BMP within normal limits. High-sensitivity troponin is 5. Given the patient's workup is ultimately negative she will be discharged home. She expressed to me that she was concerned about her blood pressure being elevated and I counseled her that her blood pressure looked normal here. It is now down to 112/60. She should maintain her 7.5 mg of amlodipine and keep a blood pressure diary. Return precautions discussed. Impression: 1. Chest pain 2. History of hypertension Lab Data Attestation: I reviewed the patient's lab results. Labs: Laboratory Results - last 24 hr 12/10/23 09:20 WBC 6.7 RBC 4.89 Hgb 14.8 Hct 44.5 MCV 91.0 MCH 30.3 MCHC 33.3 RDW Std Deviation 43.7 RDW Coeff of Lauren 13.1 Plt Count 217 MPV 9.1 Immature Gran % (Auto) 0.300 Neut % (Auto) 62.6 Lymph % (Auto) 30.4 Humphreys % (Auto) 6.6 Eos % (Auto) 0.0 Baso % (Auto) 0.1 Absolute Neuts (auto) 4.2 Absolute Lymphs (auto) 2.03 Nucleated RBC % 0 Sodium 139 Potassium 3.9 Chloride 111 H Carbon Dioxide 23.0 Anion Gap 5 BUN 11 Creatinine 0.72 Estim Creat Clear Calc 84.87 Est GFR (MDRD) Af Amer 106 Est GFR (MDRD) Non-Af 87 BUN/Creatinine Ratio 15.2 Glucose 126 H Calcium 9.1 Troponin I High Sens 5 Radiography Diagnostic Testing: Clinical Impression(s) from Imaging Studies Chest X-Ray 12/10/23 09:25 IMPRESSION: Hyperinflation. No acute tiny amount is seen. Electronically Signed: Abdullahi Hou MD at 9:42 EST , Discharge Plan Triage Chief Complaint: Chest Pain ED Provider: Kenneth Stiles Dx/Rx/DC Orders Instructions: ED Chest Pain, Noncardiac Prescriptions: No Action esomeprazole magnesium [Nexium] 20 mg capsule,delayed release(DR/EC) 20 mg PO DAILY Probiotic Acidophilus 1.5 mg (250 million cell) capsule 100 mmu cells PO DAILY albuterol sulfate [ProAir HFA] 90 mcg/actuation Hfa Aerosol Inhaler 1 inh INHALATION Q6H PRN (Reason: ASTHMA) amlodipine 5 mg tablet 7.5 mg PO DAILY Qty: 135 3RF Primary Care Provider: Gertrudis Barnard Referrals: Gertrudis Barnard MD [Primary Care Provider] - Disposition Disposition: Home, Self Care
[2023-12-10 11:43] VITALS: BP 112/60; PULSE 73; RESP 14; O2SAT 97
== END 2023-12-10 12:20 | disposition home or self-care (01) ==
PROVIDERS: Emergency Provider Student in an Organized Health Care Education/Training Program; PCP Internal Medicine; Visit Provider Student in an Organized Health Care Education/Training Program
DX: R07.9 Chest pain, unspecified (principal); R06.02 Shortness of breath; I10 Essential (primary) hypertension; Z79.899 Other long term (current) drug therapy; J45.909 Unspecified asthma, uncomplicated; F17.210 Nicotine dependence, cigarettes, uncomplicated
CPT/HCPCS: 71045; 80048; 84484; 85025; 93005; 99283; A4216

== ENCOUNTER → 2024-01-15 | Outpatient (CLI) | payer SELFPAY ==
--- NOTE | 2024-01-15 11:48 | STRESSREP_ITS ---
Stress Test Report Date: 01/15/2024 Procedure: Exercise tolerance test/imaging study Indications: Chest pain Consent: Per the patient Procedure: The patient exercised on a Juan C protocol for 4 minutes and 51 seconds achieving a peak heart rate of 150 bpm (93% predicted maximal heart rate) with a peak blood pressure 158/88 mmHg and a peak MET capacity of 7.0 METs. The baseline ECG demonstrated sinus rhythm. The peak exercise ECG demonstrated no ischemic changes. There were no cardiac dysrhythmias pretest, during exercise, or recovery. The functional capacity was considered suboptimal. There was no complaints of chest discomfort during exercise or recovery. She did complain of shortness of breath. The examination was discontinued secondary to target heart rate being achieved and dyspnea. The patient was injected with 11.1 mCi of technetium 99m Cardiolite and subsequently rest SPECT Cardiolite nuclear imaging was obtained in the horizontal long, vertical long, and short axis views. Post-exercise, the patient was injected with 33.8 mCi of technetium 99m Cardiolite and subsequently stress SPECT Cardiolite nuclear imaging was obtained in the horizontal long, vertical long, and short axis views. A gated Cardiolite study at peak stress was obtained. Rest and stress SPECT Cardiolite nuclear imaging status post realignment, normalization, and attenuation correction, demonstrates the appearance of relative uniform tracer uptake and myocardial perfusion appearing within normal limits. There is end systolic thickening and brightening. The gated Cardiolite study demonstrates myocardial thickening and inward wall motion. The reported LVEF is 72%. Impression: 1. Technically adequate (percent predicted maximal heart rate greater than 85%) exercise tolerance test 2. Peak exercise ECG with no ischemic changes 3. There were no cardiac dysrhythmias pretest, during exercise, or recovery 4. Rest and stress SPECT Cardiolite nuclear imaging demonstrate relative uniform tracer uptake and myocardial perfusion appearing within normal limits. 5. The gated Cardiolite study reports an LVEF of 72%. This note was generated with [employer] software. It may contain incorrect words, spelling, and punctuation that were not noted in checking the note before signing.
== END | disposition home or self-care (01) ==
PROVIDERS: PCP Internal Medicine; Referring Provider Internal Medicine; Visit Provider Internal Medicine
DX: R07.89 Other chest pain (principal); R06.09 Other forms of dyspnea; I10 Essential (primary) hypertension; F17.200 Nicotine dependence, unspecified, uncomplicated
CPT/HCPCS: 78452; 93017; A9500

== ENCOUNTER → 2024-05-11 | Outpatient (CLI) | payer BC, SELFPAY ==
--- NOTE | 2024-05-11 09:28 | RAD_ITS ---
STUDY: X-RAY - PELVIS AND RIGHT HIP REASON FOR EXAM: Female, 59 years old. Right hip pain. TECHNIQUE: 3 views of the pelvis and right hip. COMPARISON: Right hip radiographs dated 08/04/2007. FINDINGS: There is a non-specific bowel gas pattern. Normal visualized soft tissue structures. Normal bilateral iliac wings, sacroiliac joints and visualized sacrum. Normal bilateral superior and inferior pubic rami. Normal pubic symphysis. Normal bilateral ischial tuberosities. Normal visualized femoral head. Intact acetabulum. Normal hip joint. There is no demonstrated acute fracture. RAD/HIP, UNI W/ Pelvis 2-3 Views IMPRESSION: Unremarkable x-ray examination of the pelvis and right hip. Electronically Signed: Thomas Dodd MD at 10:12 EDT ,
== END | disposition home or self-care (01) ==
PROVIDERS: PCP Internal Medicine; Visit Provider Internal Medicine
DX: M25.551 Pain in right hip (principal)
CPT/HCPCS: 73502

== ENCOUNTER 2024-06-11 15:30 | Outpatient (RCR) | payer BC, SELFPAY | END 2024-06-11 19:00 | disposition home or self-care (01) | LOC: PT 15:30 | PROVIDERS: PCP Internal Medicine; Referring Provider Internal Medicine; Visit Provider Internal Medicine | DX: M25.551 Pain in right hip (principal) | CPT/HCPCS: 97110; 97162 ==